=== PATIENT | male | born 1955 | race Caucasian/White ===

== ENCOUNTER 2019-04-06 08:15 | Inpatient (IN) ==
[~2019-04-06 08:15] MED LIST: ISOPROPYL ALCOHOL 480 APPL BTL MC ONE; MORPHINE SULFATE 15 MG TABLET.SA PO PRN; TRANEXAMIC ACID 1,000 MG in NORMAL SALINE 100 ML IV PRN; ceFAZolin SODIUM 1 GM VIAL IV PRN; ceFAZolin SODIUM 1 GM VIAL ONE
[2019-04-06] MEDS ORDERED: LIDOCAINE HCL 20 ML VIAL ONE (08:23)
[2019-04-06] MEDS ORDERED: PROPOFOL VIAL IV ONE (08:24)
[2019-04-06] MEDS ORDERED: ONDANSETRON HCL/PF 2 MG/ML VIAL ONE (08:24)
[2019-04-06] MEDS ORDERED: NORMAL SALINE 20 ML VIAL ONE (08:24)
[2019-04-06] MEDS ORDERED: BUPIVACAINE HCL/EPINEPHRINE 50 ML VIAL ONE (08:24)
--- NOTE | 2019-04-06 09:09 | ANES ---
Anesthesia Pre Procedure Eval Vitals/Labs: Last Vital Signs Temp 36.8 C 04/06/19 08:38 Pulse 57 L 04/06/19 08:38 Resp 18 04/06/19 08:38 BP 139/83 04/06/19 08:38 Pulse Ox 98 04/06/19 08:38 HOME MEDICATIONS aspirin 81 mg tablet,delayed release 81 mg PO DAILY 08/31/18 [Last Taken 03/25/19] duloxetine 30 mg capsule,delayed release 30 mg PO DAILY #30 cap 01/12/19 [Last Taken 04/03/19] atorvastatin 80 mg tablet 80 mg PO HS #90 tab 03/15/19 [Last Taken 04/03/19] Allergies/Adverse Reactions: Allergies Allergy/AdvReac Type Severity Reaction Status Date / Time No Known Allergies Allergy Verified 03/29/19 10:35 - Planned Procedure Planned Procedure: Left Reverse Total Shoulder, thomas pro Medication List Reviewed:: Yes Allergies Verified: Yes Medical History (Last Reviewed 04/06/19 @ 09:08 by Germán Harley CRNA) Rotator cuff arthropathy (Chronic) Carpal tunnel syndrome DDD (degenerative disc disease) Onset Date: Unknown Cervical Erectile dysfunction Onset Date: Unknown History of EMG Onset Date: ~09/17/18 Left upper extremity//dhuna Hyperlipidemia Onset Date: ~2011 Migraine Onset Date: Unknown Multinodular goiter Onset Date: Unknown 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 Brother , Age 43 motorcycle accident No problems noted. Father , Age 83 Diabetes Mother , age 83 No problems noted. Sister Medical history unknown x5 Brother Medical history unknown Brother Medical history unknown Daughter Alive and well x3 Son Alive and well - Family Anesthesia History Family History:: no untoward family reactions to anesthesia - Airway/Neck/Teeth Within Normal Limits:: Yes Teeth Condition: intact Neck Exam: full range of motion Mallampatti Score: 2 Thyromental (T-M) distance: > 6 cm Mandibulo Hyoid distance: > 3 cm - Respiratory Respiratory Physical: lungs clear Smoking Status: Never smoker Sleep Apnea currently treated: No Sleep Apnea by current assessment: No - Cardiovascular Cardiac History: hyperlipidemia Tolerate Activity: Good Heart Sounds: S1 & S2, Regular - Gastrointestinal NPO since: MN - Anesthesia Assessment and Plan ASA Class: PS, II Anesthesia Type Plan: General LMA - interscalene nerve block Planned difficult intubation/equipment available: No
[2019-04-06] MEDS: RINGER'S SOLUTION,LACTATED 1,000 ML IV PRN ×2 (09:15→10:53)
--- NOTE | 2019-04-06 11:51 | OR ---
Operative Report - Dictated Report Narrative: DATE OF PROCEDURE: 04/06/2019 PHYSICIAN: Sanjiv Yan MD FLOWER MAKER: Julio César Hernandez PA-C (provided and essential set of skilled, educated hands that assisted with transfer, positioning, prepping, draping, manipulation, retraction, placement of implants, irrigation, closure wounds, and application of dressings all which cannot be performed by the available surgical crew) PREOPERATIVE DIAGNOSIS: Left rotator cuff deficient shoulder arthrosis. POSTOPERATIVE DIAGNOSIS: Left rotator cuff deficient shoulder arthrosis. OPERATIONS AND PROCEDURES: Left reverse total shoulder arthroplasty. ANESTHESIA: General plus regional. COMPLICATIONS: None. DRAINS: None. SPECIMENS: Bone. ESTIMATED BLOOD LOSS: 50 mL. RETAINED IMPLANTS: 1. DePuy Delta Xtend cementless metaglene. 2. Delta Xtend glenosphere, 42 mm standard. 3. Delta Xtend size 12 modular humeral DAVEY-coated cementless stem. 4. Size 2 left modular eccentric epiphysis DAVEY-coated cementless. 5. Delta Xtend standard polyethylene size 42 plus 3 mm. 6. Metaglene locking screws, 36 mm and 42 mm in length. 7. Nonlocking metaglene screws, 24mm and 18 mm. INDICATIONS FOR PROCEDURE: Mr. Pike is a 64-year-old gentleman with significant past history of rotator cuff tears and deficiency. He had treated these conservatively and had an irreparable rotator cuff with some progression of arthrosis of the shoulder and difficulty with activities of daily living in pain. He was seen in clinic and had failed conservative measures. He wished to proceed with surgical treatment. The risks, benefits, and alternatives were discussed in clinic, including the risk of , blood clots, bleeding, infection, nerve/tendon/blood vessel injury, malposition of components, failure of components, wear or limited range of motion, stiffness, and need for additional procedures, and she wished to proceed. Consent was obtained here in the clinic. DESCRIPTION OF PROCEDURE: After marking the correct extremity in the preoperative holding area, the patient was taken to the operating room. A timeout was performed. IV antibiotics consisting of Ancef were administered prior to procedure. The regional followed by general anesthetic was induced by the nurse plastics and composites inspector at my request. He was then transitioned to beach chair position with all bony prominences well padded. The head in neutral, legs with SCDs and supported,and the nonoperative arm supported. The surgical arm was prescrubbed with alcohol then prepped and draped in the standard sterile fashion and the skin was covered with ioban. A deltopectoral incision was made and blunt dissection was carried down through the skin. The cephalic vein was identified, protected, and retracted. We then went through the deltopectoral interval, exposing the proximal humerus. It was noted that there was no rotator cuff, supraspinatus and infraspinatus tendon, or teres minor tendon. The subscapularis was intact however the long head of the biceps was already torn . A tag suture was placed in subscapularis tendon as well as the anterior capsule, and this was elevated off the anterior humerus passing along the bicipital groove and into the rotator cuff interval, exposing the proximal humerus. This was then freed off the proximal humerus. A biceps tenotomy was performed and the shoulder was dislocated. The humeral head was noted to show signs of arthrosis. Next, an entry drill was placed down the humerus centered on the longitudinal axis entering off just onto the articular surface on the humeral head. Next were serial reamers up to the size 12 were utilized, which gave good overall cortical contact. Next, a proximal humeral h ead cut was performed. We made the cut at approximately 10 degrees of retroversion. This appeared to resect an appropriate amount of humeral head. This was then pinned into place and an oscillating saw was utilized to cut this humeral head, protecting the surrounding soft tissues. We then placed a cap over the proximal humerus and turned our attention to the glenoid. The soft tissues were then elevated off the humeral neck as well as circumferentially around the glenoid. The glenoid was exposed. The remaining biceps tendon and labrum were resected. Using tractors, the glenoid was exposed and a guidewire was placed just posterior and inferior to the center of the glenoid. This was made so that it directed slightly superiorly but otherwise perpendicular to the glenoid on the axillary plane. Protecting the surrounding soft tissues, a reamer was utilized in order to remove the remaining cartilage. A job hand was utilized in order to resect the superior cartilage, and this resulted in a good overall appearance of the glenoid. The center drill lug hole was drilled and had good circumferential bone. The metaglene was then impacted into place and oriented for placement of screws along the mid plane in the superior and inferior quadrants of the glenoid as well as anterior to posterior screws. These were drilled and had appropriate overall length of screws on the superior and inferior metaglene screws. Good purchase was obtained with a 42 mm screw superiorly and 36 mm screw inferiorly. The anterior and posterior screws were drilled and 24 mm anterior and 18mm posterior nonlocking screws were placed. We then locked the superior and inferior screws into place. This gave good overall compression down to the glenoid with flat overall appearance and an appropriate alignment. We returned our attention to the proximal humerus. The proximal humeral reaming guide was placed for an eccentric reamer. This was utilized in order to prepare the proximal humerus. The trial stem was assembled on the back table and impacted into place. After placing the trial stem, we then returned to the metaglene. The glenosphere was then secured to the metaglene, impacted, and tightened ensuring that this was seated completely. We then returned to the humeral component and placed the trials of polyethylene inserts and found that the 3mm gave good overall longitudinal traction with no gapping. The shoulder was able to reach 150 degrees of forward flexion and 140 degrees of abduction, external rotation was to 90 degrees and with fulcrum and armpit were unable to hinge the joint out of place, and there was no essentially no gapping of the polyethylene off the humeral head nor any signs of impingement on the glenoid neck. We felt that these were the appropriately placed and sized implants. We then dislocated the shoulder, removed the trial implants, thoroughly irrigated the humerus, impacted the final implants into place in the prior determined retroversion. The trial polyethylene was utilized again and was noted that the actual stem and the trial stem were equal in tension, and thus the final polyethylene was impacted into place. The shoulder was reduced, again noted to be stable, was then thoroughly irrigated. The subscapularis and biceps tendon were secured to the surrounding soft tissues as well as through drill holes using a #1 Ethibond suture. The deltopectoral interval was closed with #0 Vicryl. The deep tissues were then closed with #0 Vicryl, subcutaneous with 3-0 Monocryl, and the skin with elgin. Attention was then turned to the distal clavicle. A transverse incision was made over the acromioclavicular joint. This was sharply dissected down to the acromio-clavicular capsule. Cautery was utilized for hemostasis. A longit udinal capsulotomy was made and elevated off the anterior posterior aspects of the distal clavicle. There is notable hypertrophic bone and loss of joint space between the acromion and clavicle. Protecting the surrounding soft tissues, an oscillating saw was utilized in order to resect approximately 7-10 mm of bone from the distal clavicle. The remaining clavicle was stable after removing this. The shoulders place a range of motion and showed no remaining impingement between the acromion and the clavicle. Wounds were then thoroughly irrigated. The capsule was closed with interrupted 0 Vicryl to subcutaneous tissue with 3-0 Vicryl. Skin was closed with elgin. Xeroform, 4 x 4, ABD, soft roll, and full arm Larry was applied. The patient was placed in a shoulder sling, awoken, and transferred to postanesthesia care in stable condition. All sponge, needle, and instrument counts were correct prior to closing the wounds. We will obtain postoperative films and be admitted to the floor for postoperative pain control, IV antibiotics, and starting of physical therapy. I anticipate a one to two night hospital stay.
[2019-04-06] MEDS ORDERED: MORPHINE SULFATE 2 MG/ML DISP.SYRIN IV PRN (11:53)
[2019-04-06] MEDS ORDERED: ACETAMINOPHEN 500 MG TABLET PO PRN (11:53)
[2019-04-06] MEDS ORDERED: ONDANSETRON HCL/PF 2 MG/ML VIAL IV PRN (11:53)
[2019-04-06] MEDS ORDERED: MAG HYDROX/ALUMINUM HYD/SIMETH 30 ML UDC PO PRN (11:53)
[2019-04-06] MEDS ORDERED: ZOLPIDEM TARTRATE 5 MG TABLET PO PRN (11:53)
[2019-04-06] MEDS ORDERED: DEXTROSE 5%-LACTATED RINGERS 1,000 ML IV PRN (11:53)
[2019-04-06] MEDS ORDERED: MAGNESIUM HYDROXIDE 30 ML UDC PO PRN (11:53)
[2019-04-06] MEDS ORDERED: diphenhydrAMINE HCL 50 MG/ML VIAL IV PRN (11:53)
--- NOTE | 2019-04-06 12:13 | ANES ---
Post Anesthesia Discharge - Transfer of Care Transfer of Care handoff given to nurse: Yes - Discharge from PACU Discharge from PACU when meets criteria: Yes
--- NOTE | 2019-04-06 12:18 | ANES ---
Anesthesia Procedure Note Procedure Note: ANESTHESIA PROCEDURE NOTE Date of procedure: 04/06/2019. Time of procedure: 11 26. Performed by: Adis Harley CRNA Mental Health Director: Mirian Valdes RN . Preprocedure diagnosis: Left shoulder DJD. Post procedure diagnosis: Same. Procedure: Ultrasound-guided left interscalene nerve block Indications: Postoperative analgesia for left reverse total shoulder. Findings: Patient brought to operating room #4 given a general anesthetic with LMA insertion. Patient was placed in a semi-Fowlers position. Left side of patient's neck was prepped with ChloraPrep. Ultrasound utilized to identify the brachial plexus in the left interscalene groove. A 22-gauge 2 inch regional block needle was advanced under ultrasound guidance till tip of needle was positioned just anterior to brachial plexus. A nerve stimulator was also utilized with muscle twitch noted with decreasing intensity from 0.9 mA to 0.45. Muscle twitch not elicited at 0.45 mA. 20 mL of .5% Marcaine with epinephrine 1-200,000 was injected with adequate spread of local anesthesia noted around the nerve roots. Regional block needle was then repositioned till tip was located just posterior to brachial plexus. A second dose of 20 mL of Marcaine with epinephrine 1 200,000 was given with adequate spread again noted. Regional block needle was removed intact. EBL: Minimal. Fluids: N/A. Specimen: N/A. Post procedure condition: The patient tolerated the procedure well. No complications were noted. Thank you for this consultation Adis Harley CRNA
--- NOTE | 2019-04-06 12:29 | ANES ---
Post Anesthesia Assessment - Vital Signs Vitals: Last Vital Signs Temp 36 C 04/06/19 12:05 Pulse 53 L 04/06/19 12:05 Resp 12 04/06/19 12:05 BP 93/49 04/06/19 12:05 Pulse Ox 94 04/06/19 12:05 Airway Patency: Normal - Mental Status Level Of Consciousness: Awake - Pain Level Pain Score: 0 - N/V Assessment Nausea/Vomiting Presence: None Dehydration:: No
[2019-04-06] MEDS: ceFAZolin SODIUM 1 GM in DEXTROSE 5 % IN WATER 100 ML IV SCH ×4 (12:53→19:13)
[2019-04-06] MEDS: KETOROLAC TROMETHAMINE 15 MG/ML VIAL IV SCH ×2 (12:54→19:14)
[2019-04-06] MEDS: oxyCODONE HCL/ACETAMINOPHEN 1 TAB TABLET PO PRN ×3 (15:02→21:36)
[2019-04-06] MEDS ORDERED: ROSUVASTATIN CALCIUM 20 MG TABLET PO SCH (21:00)
[2019-04-06] MEDS: ASPIRIN 325 MG TABLET.DR PO SCH (21:35)
[2019-04-06] MEDS: SENNOSIDES/DOCUSATE SODIUM 1 TAB TABLET PO SCH ×2 (21:35→21:38)
[2019-04-07] MEDS: KETOROLAC TROMETHAMINE 15 MG/ML VIAL IV SCH ×2 (01:35→07:38)
[2019-04-07] MEDS: ceFAZolin SODIUM 1 GM in DEXTROSE 5 % IN WATER 100 ML IV SCH ×2 (01:35)
[2019-04-07] MEDS: oxyCODONE HCL/ACETAMINOPHEN 1 TAB TABLET PO PRN ×3 (01:36→12:13)
[2019-04-07] MEDS: ASPIRIN 325 MG TABLET.DR PO SCH (08:06)
[2019-04-07] MEDS ORDERED: DULoxetine HCL 30 MG CAPSULE.SA PO SCH (09:00)
--- NOTE | 2019-04-07 11:24 | DS ---
(1) Status post reverse total arthroplasty of left shoulder Problem: Acute (2) Rotator cuff arthropathy Problem: Chronic Qualifiers: Date of Discharge:: 04/07/19 Hospital Course: Mr. Pike was admitted to the floor after undergoing left reverse total shoulder arthroplasty. Tolerated this well. Was admitted to the floor postoperatively for 24 hours of IV antibiotics, pain control, medical comanagement, and occupational and physical therapy. OT and PT were consulted to assist with activities of daily living and ambulation. Was made weightbearing as tolerated with range of motion as tolerated. Pain was initially controlled with IV regimen. This was transitioned to oral once tolerating a by mouth intake. Was resumed on home diet and medications. 325 mg aspirin twice daily SCD and ZENY hose were utilized for DVT prophylaxis. Vital signs remained stable to the hospital course. BMP was reviewed and was stable. Physical examination throughout the hospital course showed an extremity that had sensation that was intact to light touch and palpable pulses. Once an oral pain regimen was tolerated and physical therapy goals were met, it was felt that they were stable for discharge to home. Instructions: Continue with weightbearing as tolerated and range of motion as tolerated. Keep wound clean and dry. If you note any drainage or for comfort you can cover with dry gauze and tape. Change every 2-3 days as needed. Continue with physical therapy. Resume home diet. Report any fever over 101.5 Fahrenheit, uncontrolled pain, increased drainage, foul odor of drainage, new or increased calf pain or shortness of breath, or any other significant complaints. A 325mg dialy aspirin twice daily for 1 month postoperatively and then resume his normal 81 mg aspirin daily. No driving until instructed otherwise. Follow up in [facility] 10-14 days. Procedures Performed: see notes below List Procedures: Status post left reverse total shoulder Discharge Location: Home Disposition: Home self-care Condition: Good Discharge Activity: Activity as tolerated Discharge Diet: General/regular food Referrals: Sanjiv Yan MD [Staff Physician] - 04/19/19 8:45 am Additional Patient Instructions (free text): Physical Therapy appointment scheduled at [facility] in [place] on ThursdayApril 11 at 8:30 am. Follow up in the office with Dr. Yan on ThursdayApril 19 at 8:45am. Prescriptions (Any new or edited meds): oxyCODONE HCL/ACETAMINOPHEN [Percocet 5 MG/325 MG] 2 tab PO Q4H PRN #56 tab PRN Reason: Moderate Pain (Pain Scale 4-6) Transmission Status: Sent to [facility] [place] Sennosides/Docusate Sodium [Senokot-S] 2 tab PO HS #30 tab Transmission Status: Pending to [facility] [place] Complete Home Medications List: Complete Home Medication List: aspirin 81 mg tablet,delayed release 81 mg PO DAILY 08/31/18 duloxetine 30 mg capsule,delayed release 30 mg PO DAILY #30 cap 01/12/19 atorvastatin 80 mg tablet 80 mg PO HS #90 tab 03/15/19 Meloxicam [Mobic] 15 mg PO DAILY 04/06/19 Aspirin [Aspirin Enteric Coated] 325 mg PO BID tablet. 04/07/19 Sennosides/Docusate Sodium [Senokot-S] 2 tab PO HS #30 tab 04/07/19 oxyCODONE HCL/ACETAMINOPHEN [Percocet 5 MG/325 MG] 2 tab PO Q4H PRN #56 tab 04/07/19 Amb Orders for Discharge: PT Evaluation and Treatment* Facility: [facility], Location: Rehabilitation Services
[2019-04-07 11:50] VITALS: BP 130/74
== END 2019-04-07 12:25 | disposition home or self-care (01) | DRG 483 ==
LOC: MS 08:15
PROVIDERS: ADMIT Orthopaedic Surgery; ATTEND Orthopaedic Surgery
DX: M24.812 Other specific joint derangements of left shoulder, not elsewhere classified; E78.5 Hyperlipidemia, unspecified; M19.012 Primary osteoarthritis, left shoulder; M75.122 Complete rotator cuff tear or rupture of left shoulder, not specified as traumatic
CPT/HCPCS: 73030; 97140; 97161; 97165; J2405